=== PATIENT | male | born 1945 | race Caucasian/White ===

== ENCOUNTER 2018-04-30 12:32 | Emergency (ER) | payer MEDICARE, MEDICAID ==
[~2018-04-30] VITALS: Ht 165.1 cm; Wt 58.5 kg
[2018-04-30 12:37] VITALS: BP_SYST 115
[2018-04-30 13:51] VITALS: BP_SYST 115
== END 2018-04-30 13:51 | disposition home or self-care (01) ==
LOC: SED 12:32
DX: L76.82 Other postprocedural complications of skin and subcutaneous tissue (principal); Z85.038 Personal history of other malignant neoplasm of large intestine; Z85.46 Personal history of malignant neoplasm of prostate
CPT/HCPCS: 99281

== ENCOUNTER 2019-05-22 10:28 | Emergency (ER) | payer MEDICARE, MEDICAID ==
[~2019-05-22] VITALS: Ht 165.1 cm; Wt 57.2 kg
[2019-05-22 10:47] VITALS: BP_SYST 100
--- NOTE | 2019-05-22 10:53 | NUR ---
Patient triaged and placed in waiting room. VSS and patient appears in no acute distress at this time. Accompanied by FRIEND, awaiting available bed, and MD notified of need for MSE.
--- NOTE | 2019-05-22 11:09 | NUR ---
Pt placed in bed 7
--- NOTE | 2019-05-22 11:10 | NUR ---
Patient arrived in the ED accompanied by his , c/o left-sided abdominal pain x2 weeks that is worse after eating. Denied any N/V/D. Patient is alert and oriented x4, respirations even and unlabored, speaking in full sentences, ambulating with a steady gait. VS WNL, pain level 8/10. Informed of the wait time. at bedside. Instructed to notify ED staff for any changes in condition or worsening of symptoms. Patient verbalized understanding.
--- NOTE | 2019-05-22 11:18 | NUR ---
ER Dr. Rodriguez at bedside examining patient.
[2019-05-22] MEDS ORDERED: KETOROLAC TROMETHAMINE 60 MG/2 ML VIAL IM ONE (11:30)
--- NOTE | 2019-05-22 11:35 | NUR ---
Administered Toradol IM to Right ventrogluteal as ordered by Dr. Rodriguez. Patient tolerated the medication well.
[2019-05-22 12:30] LABS: BASOPHILS % (AUTO) 0.6 % (0.0-2.0); EOSINOPHILS % (AUTO) 0.6 % (0.0-4.0); HEMATOCRIT 34.5 % (36-54); HEMOGLOBIN 11.8 g/dL (14.0-18.0); LYMPHOCYTES # (AUTO) 1.2 K/uL (1.0-5.5); MEAN CORPUSCULAR HEMOGLOBIN 34 pg (27-31); MEAN CORPUSCULAR HGB CONC 34 % (32-36); MEAN CORPUSCULAR VOLUME 98 fL (79.0-98.0); MONOCYTES % (AUTO) 13.7 % (1.7-9.3); NEUTROPHILS % (AUTO) 69.1 % (40.0-70.0); PLATELET COUNT (AUTO) 252 K/uL (130-430); RED BLOOD CELL COUNT(AUTO) 3.52 MIL/uL (4.2-6.2); RED CELL DISTRIBUTION WIDTH 13.5 % (9.0-15.0); WHITE BLOOD COUNT (AUTO) 7.3 K/uL (4.8-10.8)
[2019-05-22 12:32] LABS: ANION GAP 7 (5-15); CALCIUM 9.4 mg/dL (8.4-11.0); CHLORIDE 103 mmol/L (98-107); CREATININE 1.05 mg/dL (0.55-1.30); GLUCOSE 85 mg/dL (70-99); POTASSIUM 3.8 mmol/L (3.5-5.1); SODIUM SERUM 139 mmol/L (136-145); UREA NITROGEN, BLOOD 14 mg/dL (8-21)
[2019-05-22 12:37] LABS: ALANINE AMINOTRANSFERASE 18 U/L (12-78); ALBUMIN 3.5 g/dL (3.4-4.8); ASPARTATE AMINOTRANSFERASE 16 U/L (10-37); LIPASE 349 U/L (73-393); TOTAL BILIRUBIN 0.3 mg/dL (0.0-1.0)
--- NOTE | 2019-05-22 12:39 | NUR ---
Patient is awake and alert, resting comfortably in bed. Respirations even and unlabored, VS WNL. at bedside.
--- NOTE | 2019-05-22 13:01 | NUR ---
Patient given written and verbal discharge instructions and verbalizes understanding. ER MD discussed with patient the results and treatment provided. Patient in stable condition. ID arm band removed. No Rx given. Patient educated on pain management and to follow up with PMD. Pain Scale 0/10. Opportunity for questions provided and answered. Medication side effect fact sheet provided.
[2019-05-22 13:02] VITALS: BP_SYST 110
== END 2019-05-22 13:01 | disposition home or self-care (01) ==
LOC: SED 10:28
DX: R10.12 Left upper quadrant pain (principal)
CPT/HCPCS: 36415; 74018; 80053; 83690; 85025; 96372; 99284; J1885

== ENCOUNTER 2021-12-24 12:12 | Emergency (ER) | payer MEDICARE, MEDICAID ==
[~2021-12-24] VITALS: Ht 165.1 cm; Wt 59.0 kg
[2021-12-24 14:41] VITALS: BP_SYST 127
--- NOTE | 2021-12-24 14:42 | NUR ---
Patient to ER bed TRIAGE for evaluation
--- NOTE | 2021-12-24 14:43 | NUR ---
ER at bedside examining patient.
--- NOTE | 2021-12-24 14:45 | NUR ---
PT C/O INTERMITTENT HEMATURIA
[2021-12-24 15:44] LABS: BILIRUBIN,URINE NEGATIVE (NEGATIVE); BLOOD, URINE 1+ (NEGATIVE); CLARITY/URINE CLEAR (CLEAR); COLOR,URINE YELLOW (YELLOW); GLUCOSE,URINE NEGATIVE (NEGATIVE); KETONES,URINE NEGATIVE (NEGATIVE); LEUKOCYTE ESTERASE ,URINE NEGATIVE (NEGATIVE); NITRITE, URINE NEGATIVE (NEGATIVE); PROTEIN URINE NEGATIVE (NEGATIVE); UROBILINOGEN,URINE 0.2 (0.2-1.0)
[2021-12-24 16:01] LABS: BACTERIA,URINE FEW /HPF (None Seen); WBC,URINE NONE SEEN /HPF (0-3)
[2021-12-24 16:42] VITALS: BP_SYST 112
--- NOTE | 2021-12-24 16:42 | NUR ---
Patient given written and verbal discharge instructions and verbalizes understanding. ER MD discussed with patient the results and treatment provided. Patient in stable condition. ID arm band removed. NO Rx of given. Patient educated on pain management and to follow up with PMD. Pain Scale 0. Opportunity for questions provided and answered. Medication side effect fact sheet provided.
== END 2021-12-24 16:42 | disposition home or self-care (01) ==
LOC: SED 12:12
DX: R31.9 Hematuria, unspecified (principal); R82.81 Pyuria
CPT/HCPCS: 81000; 87086; 99283

== ENCOUNTER 2022-10-12 17:59 | Emergency (ER) | payer MEDICARE, MEDICAID ==
[~2022-10-12] VITALS: Ht 165.1 cm; Wt 59.0 kg
[2022-10-12 18:08] VITALS: BP_SYST 109
--- NOTE | 2022-10-12 19:30 | NUR ---
PT BIB BY FROM HOME, AMBULATED TO BED 7. PT A&Ox4, ABLE TO MAKE NEEDS KNOWN. PT C/O LEFT FLANK PAIN BEGINNING TODAY. PT STATES HE IS UNABLE TO SIT UP STRAIGHT DUE TO THE PAIN. PT RATES PAIN /. PT TOOK TYLENOL 600MG AT 11AM, INEFFECTIVE. PT DENIES DIFFICULTY URINATING. PT DENIES N/V/D, CHEST PAIN AND SOB. PT DENIES FEVER/CHILLS. SAFETY PRECAUTION IN PLACE.
--- NOTE | 2022-10-12 19:30 | NUR ---
Patient ambulatory to bed 7 for evaluation and treament
--- NOTE | 2022-10-12 19:32 | NUR ---
ER Dr. RIDER at bedside examining patient.
--- NOTE | 2022-10-12 19:38 | NUR ---
PT AMBULATED TO RADIOLOGY.
--- NOTE | 2022-10-12 19:45 | NUR ---
PT RETURNED FROM RADIOLOGY.
--- NOTE | 2022-10-12 19:50 | NUR ---
LAB AT BEDSIDE.
[2022-10-12 20:07] LABS: BILIRUBIN,URINE NEGATIVE (NEGATIVE); CLARITY/URINE CLEAR (CLEAR); COLOR,URINE YELLOW (YELLOW); GLUCOSE,URINE 3+ (NEGATIVE); KETONES,URINE TRACE (NEGATIVE); LEUKOCYTE ESTERASE ,URINE NEGATIVE (NEGATIVE); NITRITE, URINE NEGATIVE (NEGATIVE); PROTEIN URINE 1+ (NEGATIVE)
[2022-10-12 20:19] LABS: BLOOD, URINE TRACE (NEGATIVE)
[2022-10-12 20:20] LABS: BASOPHILS % (AUTO) 0.2 % (0.0-2.0); EOSINOPHILS # (AUTO) 0.1 K/uL (0.0-0.4); EOSINOPHILS % (AUTO) 0.6 % (0.0-4.0); HEMATOCRIT 40.9 % (36-54); HEMOGLOBIN 13.6 g/dL (14.0-18.0); LYMPHOCYTES % (AUTO) 14.5 % (20.5-51.5); MEAN CORPUSCULAR HEMOGLOBIN 33 pg (27-31); MEAN CORPUSCULAR HGB CONC 33 % (32-36); MEAN CORPUSCULAR VOLUME 99 fL (79.0-98.0); MONOCYTES # (AUTO) 1.7 K/uL (0.0-1.0); MONOCYTES % (AUTO) 12.3 % (1.7-9.3); NEUTROPHILS # (AUTO) 10.2 K/uL (1.8-7.7); NEUTROPHILS % (AUTO) 72.4 % (40.0-70.0); PLATELET COUNT (AUTO) 229 K/uL (130-430); RED BLOOD CELL COUNT(AUTO) 4.14 MIL/uL (4.2-6.2); RED CELL DISTRIBUTION WIDTH 13.9 % (9.0-15.0); WHITE BLOOD COUNT (AUTO) 14.1 K/uL (4.8-10.8)
[2022-10-12 20:26] LABS: BACTERIA,URINE None Seen /HPF (None Seen); MUCUS,URINE None Seen /LPF (None Seen); WBC,URINE 0-3 /HPF (0-3)
[2022-10-12 20:35] LABS: ANION GAP 9 (5-15); CHLORIDE 100 mmol/L (98-107); CREATININE 1.27 mg/dL (0.55-1.30); GLUCOSE 112 mg/dL (70-99); UREA NITROGEN, BLOOD 15 mg/dL (8-21)
[2022-10-12 20:40] LABS: ALANINE AMINOTRANSFERASE 21 U/L (12-78); ALBUMIN 3.6 g/dL (3.4-4.8); ASPARTATE AMINOTRANSFERASE 17 U/L (10-37); TOTAL BILIRUBIN 0.5 mg/dL (0.0-1.0)
[2022-10-12] MEDS ORDERED: TRAM50TA2 PO (20:48)
[2022-10-12] MEDS ORDERED: KETOROLAC TROMETHAMINE 30 MG VIAL IM ONE (21:00)
--- NOTE | 2022-10-12 21:43 | NUR ---
Patient given written and verbal discharge instructions and verbalizes understanding. ER DR. RIDER discussed with patient the results and treatment provided. Patient in stable condition. ID arm band removed. Rx of ULTRAM given. Patient educated on pain management and to follow up with PMD. Pain Scale 3/10. Opportunity for questions provided and answered. Medication side effect fact sheet provided.
[2022-10-12 21:46] VITALS: BP_SYST 104
== END 2022-10-12 21:46 | disposition home or self-care (01) ==
LOC: SED 17:59
DX: R10.9 Unspecified abdominal pain (principal); M54.6 Pain in thoracic spine; E78.5 Hyperlipidemia, unspecified
CPT/HCPCS: 99284; 71045; 80053; 81000; 85025; 36415; 96372; J1885